=== PATIENT | male | born 1970 | race American Indian/Alaskan Native ===

== ENCOUNTER 2020-03-27 21:08 | Emergency (ER) | payer MEDICAID ==
[2020-03-27] MEDS ORDERED: ASPIRIN 325 MG TAB PO ONE (22:04)
--- NOTE | 2020-03-27 22:54 | XRay Report ---
CHEST 2 VIEWS INDICATION / CLINICAL INFORMATION: Chest Pain. COMPARISON: None available. FINDINGS: SUPPORT DEVICES: None. HEART / MEDIASTINUM: No significant abnormality. LUNGS / PLEURA: No significant pulmonary or pleural abnormality. No pneumothorax. ADDITIONAL FINDINGS: No significant additional findings. IMPRESSION: No acute cardiopulmonary abnormality. Signer Name: Ghulam Alcantara MD Signed: 03/27/2020 10:49 PM Workstation Name: [id number]
[2020-03-27 23:11] LABS: Basophils # (Auto) 0.1 K/mm3 (0.0-0.1); Basophils % (Auto) 0.9 % (0.0-1.8); Eosinophils # (Auto) 0.1 K/mm3 (0.0-0.4); Eosinophils % (Auto) 1.1 % (0.0-4.3); Hematocrit 45.8 % (35.5-45.6); Hemoglobin 15.4 gm/dl (11.8-15.2); Lymphocytes # (Auto) 1.9 K/mm3 (1.2-5.4); Mean Corpuscular HGB Conc 34 % (32-34); Mean Corpuscular Volume 97 fl (84-94); Monocytes # (Auto) 0.8 K/mm3 (0.0-0.8); Monocytes % (Auto) 12.3 % (0.0-7.3); Platelet Count 226 K/mm3 (140-440); Red Blood Count 4.71 M/mm3 (3.65-5.03); Red Cell Distribution Width 13.6 % (13.2-15.2)
[2020-03-27 23:32] LABS: BUN/Creatinine Ratio 7; Blood Urea Nitrogen 7 mg/dL (9-20); Calcium 9.8 mg/dL (8.4-10.2); Hemolysis Index 10
== END 2020-03-28 01:00 | disposition left against medical advice (07) ==
LOC: ED 21:08
DX: R07.9 Chest pain, unspecified (principal); Z53.21 Procedure and treatment not carried out due to patient leaving prior to being seen by health care provider
CPT/HCPCS: 36415; 71046; 80048; 84484; 85025; 93005

== ENCOUNTER 2021-01-10 08:27 | Day surgery (SDC) | payer MEDICAID ==
[~2021-01-10 08:27] MED LIST: ceFAZolin/STERILE WATER 2 GM/20 ML SYRINGE IV NR
[2021-01-10] MEDS ORDERED: LACTATED RINGERS 1,000 ML IV SCH (09:00)
[2021-01-10] MEDS ORDERED: HYDROmorphone 1 MG/1 ML INJ IV PRN ×2 (09:10)
[2021-01-10] MEDS ORDERED: ACETAMINOPHEN 500 MG TAB PO ONE (09:10)
[2021-01-10] MEDS ORDERED: fentaNYL 100 MCG/2 ML INJ IV ONE (09:10)
[2021-01-10] MEDS ORDERED: MAGNESIUM OXIDE 400 MG TAB PO ONE (09:10)
[2021-01-10] MEDS ORDERED: ONDANSETRON 4 MG/2 ML INJ IV PRN (09:10)
--- NOTE | 2021-01-10 09:12 | Anesthesia Day of Surgery ---
Anesthesia Day of Surgery - Day of Surgery Patient Examined: Yes Patient H&P Reviewed: Yes Patient is NPO: Yes
--- NOTE | 2021-01-10 09:12 | Anesthesia Consultation ---
Anesthesia Consult and Med Hx Date of service: 01/10/21 - Airway Anesthetic Teeth Evaluation: Good ROM Head & Neck: Adequate Mental/Hyoid Distance: Adequate Mallampati Class: Class II Intubation Access Assessment: Good - Pre-Operative Health Status ASA Pre-Surgery Classification: ASA2 Proposed Anesthetic Plan: General Nerve Block: Femoral - Pulmonary Hx Smoking: Yes (QUIT 7 YEARS AGO) COPD: No Hx Sleep Apnea: No - Cardiovascular System Hx Hypertension: Yes (STARTED MEDS 6 MONTHS AGO) - Gastrointestinal Hx Gastroesophageal Reflux Disease: No - Hematic Hx Sickle Cell Disease: Yes (Trait)
[2021-01-10] MEDS ORDERED: BUPIVACAINE/PF (0.5%) 5 MG/1 ML 30 ML VIAL INFILTRATI ONE ×2 (09:13→09:47)
[2021-01-10] MEDS ORDERED: dexAMETHasone 4 MG/ML VIAL ONE (09:14)
[2021-01-10] MEDS ORDERED: dexAMETHasone 20 MG/5 ML VIAL ONE ×2 (09:47→10:42)
[2021-01-10] MEDS: MIDAZOLAM 2 MG/2 ML INJ IV SCH ×2 (09:53→09:57)
[2021-01-10] MEDS ORDERED: CELECOXIB 200 MG CAP PO NR (10:00)
[2021-01-10] MEDS ORDERED: LIDOCAINE PF 100 MG/5 ML (CARDIAC SYRINGE) IV ONE (10:16)
[2021-01-10] MEDS ORDERED: propofoL 200 MG/20 ML VIAL IV ONE (10:17)
[2021-01-10] MEDS ORDERED: ONDANSETRON 4 MG/2 ML INJ ONE (10:42)
[2021-01-10] MEDS ORDERED: ePHEDrine SULFATE 50 MG/1 ML INJ ONE (10:54)
[2021-01-10] MEDS ORDERED: SODIUM CHLORIDE 0.9% IRR 1,000 ML BOTTLE IR ONE (11:09)
--- NOTE | 2021-01-10 11:45 | Procedure Note ---
Date of procedure: 01/10/21 Pre-op diagnosis: Ruptured left quadriceps tendon Post-op diagnosis: same Procedure: Repair of rupture [left] quadriceps tendon Procedure The patient was brought to the OR and placed on the OR table in supine position following induction and intubation by anesthesia the patient's [left] lower extremity was prepped and draped in the usual sterile manner. A timeout procedure was done to identify the patient and the correct operative site. The leg was exsanguinated followed by inflation of the pneumatic tourniquet to 300 mmHg. Midline incision was made superior to the superior pole of the patella and taken down distally to the tibial tubercle. The incision was carried down through skin and subcutaneous the quadriceps tendon was seen and was ruptured roughly 1 cm to its insertion into the superior pole the medial and lateral patellar retinacula were also torn following this the undersurface of the patella was debrided of soft tissue next a #5 Ethibond suture was placed in the quadriceps tendon superiorly and using a baseball type stitch this suture was brought distally through the substance of the patella next day drillbit was used to create our patella tunnels 1 medially the ligament laterally following this a suture passer was used to grab the #5 Ethibond suture and pulled out bony tunnels through the knee was held in extension and the suture construct was sewn and tightened into position The remaining portion of the quadriceps tendon was sewn into the substance of our superior patella tendon using #1 Vicryl the medial and lateral patellar retinacula were repaired primarily. Next the wound was copiously irrigated the remaining soft tissue were sewn together subcutaneously a zip line suture closure was used to approximate the skin edges routine postoperative dressings were applied. The patient tolerated the procedure there were no complications he was sent to postanesthesia recovery in stable condition Anesthesia: MAC, regional Surgeon: MEHRDAD THOMAS (Micha Slaughter, 1st assist) Estimated blood loss: minimal Pathology: none Condition: stable Disposition: PACU
--- NOTE | 2021-01-10 13:07 | Post Anesthesia Evaluation ---
- Post Anesthesia Evaluation Patient Participated: Yes Airway Patent: Yes Stable Respiratory Function: Yes Nausea/Vomiting: No Temp > 96.8F: Yes Pain Manageable: Yes Adequeate Hydration: Yes Anesthesia Complications: No Block Receding Appropriately: Yes Patient on Ventilator: No
[2021-01-10 18:45] VITALS: BP 126/88
== END 2021-01-10 08:28 | disposition home or self-care (01) ==
LOC: OR 08:27
PROVIDERS: ATTEND Orthopaedic Surgery
DX: S76.102D Unspecified injury of left quadriceps muscle, fascia and tendon, subsequent encounter (principal); M25.562 Pain in left knee; I10 Essential (primary) hypertension; Z87.891 Personal history of nicotine dependence; Z79.899 Other long term (current) drug therapy; Z98.890 Other specified postprocedural states; X58.XXXD Exposure to other specified factors, subsequent encounter
CPT/HCPCS: 27385; 36415; 64447; 84132; J0690; J1100; J2001; J2250; J2405; J2704; J3010; J7120